=== PATIENT | male | born 1960 | race Caucasian/White ===

== ENCOUNTER 2019-12-21 04:29 | Inpatient (IN) ==
[2019-12-14 15:19] LABS: HEMATOCRIT 50.3 % (42.0-52.0); HEMOGLOBIN 16.5 g/dL (14.0-18.0); MCH 32.2 PG (27-31); MCHC 32.8 g/dL (33-37); MCV 98.1 FL (81-99); MPV 10.9 FL (7.4-10.4); RBC 5.13 XMIL (4.7-6.1); RDW 13.8 % (11.5-14.5); WBC 14.04 X1000 (4.8-10.8)
[2019-12-14 15:51] LABS: AGAP 14; ALB/GLOB RATIO 1.3; ALBUMIN 4.3 g/dL (3.5-5.0); ALKALINE PHOSPHATASE 72 U/L (32-122); BUN 18 mg/dL (8-22); CHLORIDE 97 mmol/L (98-107); COSMO 280; CREATININE 0.8 mg/dL (0.7-1.2); ESTIMATED GFR > 60; GLUCOSE 106 mg/dL (70-104); GOT 12 U/L (10-34); GPT 9 U/L (10-44); POTASSIUM 4.6 mmol/L (3.5-5.1); SODIUM 139 mmol/L (136-145); TCO2 28 mmol/L (25-35); TOTAL BILIRUBIN 0.45 mg/dL (0.20-1.00); TOTAL PROTEIN 7.7 g/dL (6.3-8.3)
[2019-12-21] MEDS ORDERED: LR 1,000 ML ONE ×3 (05:31→13:33)
[2019-12-21] MEDS ORDERED: KEFZOL 1 GM/D5W 2 GM/100 ML IVPB ONE (05:31)
[2019-12-21] MEDS ORDERED: FENTANYL ONE (06:08)
[2019-12-21] MEDS ORDERED: DIPRIVAN 1% ONE ×2 (06:08→07:22)
[2019-12-21] MEDS ORDERED: VERSED ONE ×3 (06:08→06:38)
[2019-12-21] MEDS ORDERED: NITROGLYCERIN ONE (06:25)
[2019-12-21] MEDS ORDERED: SENSORCAINE-MPF 0.5%/EPI 1:200,000 ONE ×2 (06:29→06:44)
[2019-12-21] MEDS ORDERED: NEO-SYNEPHRINE ONE (09:05)
[2019-12-21] MEDS ORDERED: OFIRMEV 1000 MG/ISOTONIC SOLN 1,000 MG/100 ML BOTTLE ONE (09:05)
[2019-12-21] MEDS ORDERED: SODIUM CHLORIDE 0.9% 10 ML ONE ×2 (09:05→12:21)
[2019-12-21] MEDS ORDERED: ROBINUL ONE (09:05)
[2019-12-21] MEDS ORDERED: NEOSTIGMINE ONE (09:05)
[2019-12-21] MEDS ORDERED: QUELICIN (DOSE) ONE (09:05)
[2019-12-21] MEDS ORDERED: ZOFRAN ONE (09:05)
[2019-12-21] MEDS ORDERED: DECADRON ONE (09:05)
[2019-12-21] MEDS ORDERED: XYLOCAINE-MPF 2% ONE (09:05)
[2019-12-21 10:39] LABS: URINE SOURCE CATH
[2019-12-21 10:48] LABS: BILIRUBIN URINE NEGATIVE (NEGATIVE); BLOOD URINE NEGATIVE (NEGATIVE); COLOR YELLOW; GLUCOSE URINE NEGATIVE (NEGATIVE); KETONE URINE NEGATIVE (NEGATIVE); LEUKOCYTES URINE NEGATIVE (NEGATIVE); NITRITE URINE NEGATIVE (NEGATIVE); PH URINE 5.5; PROTEIN URINE NEGATIVE (NEGATIVE); TURBIDITY URINE CLEAR (CLEAR); UR EPITHELIAL CELLS <10 /HPF (<10); URINE BACTERIA NEGATIVE /HPF; URINE RBC <10 /HPF (<10); URINE WBC <10 /HPF (<10); UROBILINOGEN URINE NORMAL (NORMAL)
[2019-12-21] MEDS ORDERED: NIMBEX ONE (11:53)
[2019-12-21] MEDS ORDERED: EPHEDRINE ONE (12:21)
[2019-12-21] MEDS: NITROGLYCERIN TOP SCH ×2 (13:20→18:35)
[2019-12-21] MEDS: DILAUDID ONE ×4 (13:40→14:30)
[2019-12-21] MEDS ORDERED: PHENERGAN ONE (13:40)
--- NOTE | 2019-12-21 13:50 | Diag Imaging Result Doc PS360 ---
EXAM: CHEST-PORTABLE 12/21/2019 HISTORY: PACU 3 TECHNIQUE: AP portable upright at 1323 COMMENT: There is soft tissue emphysema in the supraclavicular region on the right. There is no appreciable pneumothorax. There does appear to be pneumoperitoneum under the right hemidiaphragm. This is presumably related to the recent nephrectomy. IMPRESSION: 1. Soft tissue emphysema in the right supraclavicular region of uncertain etiology. 2. Pneumoperitoneum which is presumably postsurgical. These findings were called to the PACU and readback. Electronically signed by Francisco J Omalley 12/21/2019 1:47 PM
[2019-12-21] MEDS ORDERED: LABETALOL IV PRN (14:30)
[2019-12-21 14:44] LABS: AGAP 10; BUN 22 mg/dL (8-22); CALCIUM 8.2 mg/dL (8.8-10.2); CHLORIDE 102 mmol/L (98-107); COSMO 272; CREATININE 0.9 mg/dL (0.7-1.2); ESTIMATED GFR > 60; GLUCOSE 177 mg/dL (70-104); POTASSIUM 4.9 mmol/L (3.5-5.1); SODIUM 132 mmol/L (136-145); TCO2 20 mmol/L (25-35)
[2019-12-21 14:55] LABS: HEMATOCRIT 40.4 % (42.0-52.0); HEMOGLOBIN 13.5 g/dL (14.0-18.0); MCH 31.9 PG (27-31); MCHC 33.4 g/dL (33-37); MCV 95.5 FL (81-99); MPV 10.5 FL (7.4-10.4); PLT 161 X1000 (130-400); RBC 4.23 XMIL (4.7-6.1); RDW 15.4 % (11.5-14.5); WBC 31.36 X1000 (4.8-10.8)
[2019-12-21 15:08] LABS: LARGE PLATELETS OCCASIONAL; LYMPHS 3 % (21-51); MONO 1 % (1-9); SEGS 96 % (42-75)
[2019-12-21] MEDS: LR 1,000 ML IV SCH ×2 (16:04→21:37)
[2019-12-21] MEDS: MORPHINE IV PRN ×4 (16:10→23:39)
[2019-12-21] MEDS: KEFZOL 1 GM/D5W 1 GM/50 ML IVPB IV SCH ×2 (16:11→23:40)
[2019-12-21] MEDS: NORCO-7.5 PO PRN ×2 (17:49→22:18)
[2019-12-21] MEDS: BLISTEX MEDICATED BERRY LIP BALM TOP PRN ×2 (18:33→23:39)
[2019-12-21 19:48] LABS: BASO# 0.01 X1000 (0.0-0.2); HEMATOCRIT 40.4 % (42.0-52.0); HEMOGLOBIN 13.6 g/dL (14.0-18.0); IMM GRAN# 0.14 X1000 (0.0-0.04); IMM GRAN% 0.5 % (0.0-0.5); LYMPH# 0.64 X1000 (1.2-3.4); LYMPH% 2.1 % (20.5-51.1); MCH 31.3 PG (27-31); MCHC 33.7 g/dL (33-37); MCV 93.1 FL (81-99); MONO# 1.56 X1000 (0.11-0.59); MONO% 5.2 % (1.7-9.3); MPV 10.8 FL (7.4-10.4); NEUT# 27.54 X1000 (1.4-6.5); NEUT% 92.2 % (42.2-75.2); PLT 176 X1000 (130-400); RBC 4.34 XMIL (4.7-6.1); RDW 15.5 % (11.5-14.5); WBC 29.89 X1000 (4.8-10.8)
[2019-12-21] MEDS: COLACE PO SCH (20:23)
[2019-12-21] MEDS: ZOFRAN IV PRN (21:37)
--- NOTE | 2019-12-21 22:20 | OPERATIVE NOTE ---
PROCEDURE DATE: 12/21/2019 PREOPERATIVE DIAGNOSES: 1. Right renal mass. 2. Right adrenal mass. POSTOPERATIVE DIAGNOSES: 1. Right renal mass. 2. Right adrenal mass. PROCEDURE PERFORMED: Robotic assisted right nephrectomy with excision of right adrenal gland. SURGEON: Jerry Mar MD. SENIOR ASSET MANAGER: Lexa Casper MD ANESTHESIA: General endotracheal intubation. BLOOD LOSS: 3000 mL BLOOD PRODUCTS: 1. 4 units of packed red blood cells. 2. 1 unit of FFP. SPECIMENS REMOVED: 1. Right adrenal gland. 2. Right kidney and proximal ureter. COMPLICATIONS: Intraoperative bleeding. INDICATIONS FOR PROCEDURE: Mr. Kolb is a 59-year-old who presented to [facility] with a large right renal mass with adrenal involvement. The patient had imaging when he presented to the emergency room with chest pain back in September. The patient had a heart stent placed in August of 2019 and has been on blood thinners with Plavix and aspirin. 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 I talked with his physical education aide/oncologist who recommended cytoreductive nephrectomy. I discussed with the patient that this would decrease his tumor burden and may assist with overarching treatment with immune modulator and immune therapy medications. I told him that it would be difficult for us to remove every location of cancer, but we could perform cytoreductive nephrectomy with removal of kidney and adrenal gland. I talked with him extensively regarding the risks including bleeding, infection, damage to surrounding structures, need for secondary procedures, as well as need for intraoperative blood transfusion. After thorough discussion, the patient elected to proceed. DESCRIPTION OF PROCEDURE: After informed consent was obtained, the patient was brought to the operating room and placed on the table in supine position. The patient received endotracheal intubation and preoperative antibiotics. The patient had to be intubated with a GlideScope. Due to patient's cervical stenosis, the patient was positioned in a right up lateral decubitus position. All pressure points were padded. The patient was adhered to the bed with Velcro and the silk tape. He was tested at the extremes of rotation and stable. The patient was then prepped and draped in usual sterile fashion. A preoperative time-out was performed with all parties in agreement including anesthesia, surgical and nursing staff, at which point access was obtained to the abdomen itself using a Veress technique supraumbilically, and a drop test was then performed with 2 separate instillations of saline, which allowed for good drainage into the belly itself. We started our pressure on a low pressure and then increased it as necessary to high flow. The abdomen distended relatively appropriately, which was limited by patient's body habitus. Once this was performed, her incisions were then marked out, and using 0.5% Marcaine with epinephrine, we infiltrated the skin, and our camera port was inserted. Once this was inserted, a camera was placed into the abdomen, which showed no obvious trauma to the bowel or blood vessels. No significant adhesions were seen at which point each of our incisions were then marked and infiltrated with local anesthesia, and then each of our robotic instruments and back office medical assistant port were placed under direct visualization as well as a 5 mm for liver retraction. Once this was performed, all of our instruments were inserted, and the robotic platform was docked. Once this was completed, we began by dissecting the white line of Toldt and reflected the colon medially. We could see the tumor. It was posterior to the colon itself. I was able to retract the colon away and Kocherize the duodenum. A small amount of adhesions were seen in the lower pelvis, which were easily removed as well as some adhesions of the peritoneum to the liver itself. Once the colon and the duodenum were retracted appropriately, the patient had dissection over the inferior vena cava. I was able to follow this inferiorly to the lower pole and could see the gonadal vein as well as the ureter. The gonadal vein was retracted downward, and the ureter retracted upward, and this was used to dissect toward the renal hilum. A renal artery was able to be isolated posterior to the renal vein, and this was taken with a 35 mm stapler at which point this allowed for freeing up of the renal vein, which was then taken with the stapler; however, a small amount of bleeding was seen likely from the adrenal gland itself. This became quite brisk, and using cautery as well as Hem-o-sancho clips was able to obtain adequate hemostasis; however, continued to have some bleeding from the metastatic adrenal nodule. Pressure was placed in this as well as cautery, and a small ooze was seen. Decision was made to try to mobilize the kidney away from the adrenal gland and began by taking this from the lower pole and moving to the upper pole; however, it was very difficult to reach the upper pole due to the tumor size, and a moderate amount of bleeding was encountered on the posterior portion of the kidney. Also, I was able to free up the lateral attachments and allow for inferior retraction of the kidney and the mass itself. Attention was then placed trying to free up the adrenal gland away from the kidney itself and this was quite difficult. Ultimately, I had to come across the adrenal gland with a stapler just to obtain enough retraction to adequately remove the adrenal mass and kidney. Once this was freed up, this allowed for mobilization of the kidney itself away from the adrenal, which continued to bleed a small amount. The patient received 4 units of packed red blood cells due to continuous bleeding as well as 1 unit of fresh frozen plasma. Once this was dissected out, we were able to free the kidney up completely. A small amount of bleeding was seen posterior, which was cauterized with our bipolar electrocautery. We did obtain better hemostasis at this point. Once this was obtained, we began by dissecting out the residual adrenal mass and was able to create a plane between the inferior vena cava and ligated the adrenal vein, which allowed freeing up of the adrenal mass, and this was completely removed and placed into a EndoCatch bag. The wound was then irrigated, and insufflation was decreased down to 3 mmHg with no significant bleeding at which point SurgiSnow and Arixtra was then placed into the resection bed itself. We previously had a liver retractor in place, which was attached to the lateral wall, which was removed and allowed the liver to fall back into its normal position. No significant trauma was seen at the site of the liver retractor. Insufflation was then decreased again to 3 with no active bleeding. Laparoscopic Allis clamp was then passed through our back office medical assistant port and grasped the renal hilum. All instruments were then removed. The midline incision was carried on the infraumbilical incision and carrying it through the fascia and ultimately was able to retract our EndoCatch bag and then ultimately the kidney itself, which was sent for specimen. The wound was then vigorously irrigated with small amount of bleeding seen from our incision which was cauterized. We then used a 0 Vicryl to close our camera port and then using a 0 Maxon suture was able to close our extraction site. The wounds were then vigorously irrigated and superficial wound of our extraction site was then closed in a running fashion to close the subcutaneous tissue, and then each incision was closed using a 4-0 Monocryl and then skin glue was adhered. The patient was then awoken and was taken to recovery in stable condition. The patient will be admitted to the ICU for observation and continued resuscitation. Dr. Casper was present for the entirety of the procedure and was a georges member in assisting with the procedure due to the complexity of the case. He was present for all georges portions of this procedure cc: Jerry Mar MD [facility]
--- NOTE | 2019-12-21 22:36 | PULMONOLOGY CONSULTATION ---
DATE: 12/21/2019 REASON FOR CONSULTATION: Subcutaneous emphysema, mild hypoxemic respiratory failure, coronary artery disease, status post nephrectomy with intraoperative bleeding. HISTORY OF PRESENT ILLNESS: Mr. Kolb is a 59-year-old white male with DISH and significant spine disease, coronary artery disease status post stent placement in August 2019, who underwent a nephrectomy for presumptive kidney cancer today. The patient's Plavix had been discontinued several days prior to the procedure. The patient had several unit blood loss and received 4 units of packed red blood cells during the operation. He has been transitioned to the ICU. He is awake, alert, and conversant. He is hemodynamically stable. PREVIOUS SURGERIES: 1. Coronary artery disease. The patient had episode of severe angina last August without myocardial infarction. He indicates he had 3 blockages noted on cardiac catheterization including 80% blockage, a 90% blockage and a 70% blockage. He was referred to cardiac surgery for bypass grafting but the surgeon recommended stent placement given his severe DISH and lack of spinal mobility. He subsequently underwent 2 stents in one of the lesions and 1 stent in the other and the 70% was left for medical management. 2. Diffuse idiopathic skeletal hyperostosis affecting the cervical and thoracic spine. The patient has significant mobility. He cannot touch his chin to his chest. He cannot turn his head [id number]. 3. Dyslipidemia. 4. Hypertension. 5. Visual loss left eye. 6. Status post recent right inner inguinal hernia repair. SOCIAL HISTORY: The patient is an active smoker. No recent alcohol use. He is and his also smokes. She has diabetes. FAMILY HISTORY: Cannot be obtained. The patient was adopted. REVIEW OF SYSTEMS: Notable for appropriate for surgical abdominal pain which increases with cough or deep breathing. Review of systems is otherwise negative. PHYSICAL EXAMINATION: General: Reveals a healthy-appearing male who is resting comfortably and in no distress. The patient has been afebrile for the last 4 hours. BP 123/78, heart rate 75, respiratory rate 21, oxygen saturation 100% on 4 L per nasal cannula. HEENT: Pupils are equal. The left pupil reaction is sluggish. Oropharynx appears clear. Neck: Stiff. He cannot turn his neck [id number] and he has limited front, back mobility. There is some subcutaneous air that can be felt in the right supraclavicular fossa. Chest: Reveals limited air flow bilaterally. He may have some splinting associated with abdominal pain. Abdominal dressings are in place and they are not soiled. Extremities: Without edema. LABORATORIES: Chest x-ray reveals small amount of air under the diaphragm on the right. He has subcutaneous air noted in the right supraclavicular fossa. No definite pneumothorax. White blood count 29,000, hemoglobin 13.6, platelet count 176,000. Sodium 132, potassium 4.9, chloride 102, bicarbonate 20, anion gap is 10 and actually decreased from his preoperative labs. BUN 22, creatinine 0.9, glucose 177. IMPRESSION: A 59-year-old with 1. Subcutaneous emphysema. This is most likely related to tracking through the abdominal wall due to insufflation of the abdomen during the surgical procedure. 2. Mild pneumothorax. This is also likely related to surgical procedure and does not warrant intervention. 3. Coronary artery disease. By description, he may have 3-vessel disease but does have at least 3-lesion disease. 4. Mild hypoxemic respiratory failure. 5. Dyslipidemia. RECOMMENDATIONS: 1. Continue current fluid resuscitation as you are doing. 2. Wean oxygen as tolerated. 3. Initiate incentive spirometry. 4. Reinitiate carvedilol and cholesterol agents tomorrow. 5. Would like to reinitiate an aspirin as soon as possible and reinitiate Plavix as soon as Dr. Mar feels that this is feasible. cc: MD Jerry Puente MD MTDD
[2019-12-21] MEDS ORDERED: LR 1,000 ML IV ONE (23:39)
[2019-12-21] MEDS ORDERED: NEO-SYNEPHRINE 50 MG in NS 250 ML IV SCH (23:45)
[2019-12-21] MEDS ORDERED: SOLU-CORTEF IV ONE (23:46)
[2019-12-22] MEDS: MORPHINE IV PRN ×5 (02:10→19:40)
[2019-12-22] MEDS: NITROGLYCERIN TOP SCH ×4 (02:40→19:41)
[2019-12-22] MEDS: KEFZOL 1 GM/D5W 1 GM/50 ML IVPB IV SCH (06:20)
[2019-12-22] MEDS: LR 1,000 ML IV SCH ×3 (06:26→16:31)
[2019-12-22 06:49] LABS: BASO# 0.01 X1000 (0.0-0.2); BASO% 0.1 % (0.0-0.8); HEMATOCRIT 35.7 % (42.0-52.0); HEMOGLOBIN 11.6 g/dL (14.0-18.0); IMM GRAN# 0.05 X1000 (0.0-0.04); IMM GRAN% 0.3 % (0.0-0.5); LYMPH% 4.1 % (20.5-51.1); MCH 30.8 PG (27-31); MCHC 32.5 g/dL (33-37); MCV 94.7 FL (81-99); MONO% 9.2 % (1.7-9.3); MPV 10.6 FL (7.4-10.4); NEUT# 16.82 X1000 (1.4-6.5); NEUT% 86.3 % (42.2-75.2); PLT 154 X1000 (130-400); RBC 3.77 XMIL (4.7-6.1); RDW 15.5 % (11.5-14.5); WBC 19.48 X1000 (4.8-10.8)
[2019-12-22 07:10] LABS: AGAP 7; ALB/GLOB RATIO 1.3; ALBUMIN 3.1 g/dL (3.5-5.0); ALKALINE PHOSPHATASE 49 U/L (32-122); BUN 22 mg/dL (8-22); CALCIUM 8.9 mg/dL (8.8-10.2); CHLORIDE 100 mmol/L (98-107); COSMO 271; CREATININE 1.2 mg/dL (0.7-1.2); ESTIMATED GFR > 60; GLUCOSE 123 mg/dL (70-104); GOT 50 U/L (10-34); GPT 37 U/L (10-44); PHOSPHORUS 3.8 mg/dL (2.7-4.5); POTASSIUM 5.1 mmol/L (3.5-5.1); SODIUM 133 mmol/L (136-145); TCO2 26 mmol/L (25-35); TOTAL BILIRUBIN 0.62 mg/dL (0.20-1.00); TOTAL PROTEIN 5.5 g/dL (6.3-8.3)
[2019-12-22 07:22] LABS: LYMPHS 4 % (21-51); MONO 7 % (1-9); SEGS 89 % (42-75)
--- NOTE | 2019-12-22 07:23 | EKG Report ---
Test Performed on : 12/22/2019 06:51:27 AM Test Reason : f/u Blood Pressure : / mmHG Vent. Rate : 061 BPM Atrial Rate : 061 BPM P-R Int : 150 ms QRS Dur : 100 ms QT Int : 408 ms P-R-T Axes : 029 -39 024 degrees QTc Int : 410 ms Normal sinus rhythm. Left axis deviation Incomplete right bundle branch block Abnormal ECG No previous ECGs available Confirmed by Joselyn Sanchez MD ([id number]) on 12/23/2019 12:14:50 PM
--- NOTE | 2019-12-22 07:33 | Diag Imaging Result Doc PS360 ---
EXAM: CHEST-PORTABLE INDICATION: abnormal exam TECHNIQUE: One view COMPARISON: 12/21/2019 FINDINGS: The soft tissue emphysema in the right supraclavicular region has decreased. No new airspace consolidations are identified. Cardiac silhouette is stable. There is stable free air underneath the right hemidiaphragm, assumed to be postsurgical. IMPRESSION: Decrease in soft tissue emphysema in the right supraclavicular region. Stable chest, otherwise. Electronically signed by Jeremi Terry 12/22/2019 7:31 AM
--- NOTE | 2019-12-22 07:47 | PROGRESS NOTE ---
DATE: 12/22/2019 SUBJECTIVE: Postoperative day 1 from right robotic-assisted laparoscopic right radical nephrectomy with excision of a metastatic lesion to the adrenal gland. The patient had significant blood loss yesterday with 3000 mL of EBL, received 4 units of packed red blood cells. He was transferred to the ICU postoperatively and overall is doing well. He had some hypotension overnight and he was started on phenylephrine, is on the lowest dose with MAPs in the 80s to 90s. He states his pain is well controlled. He has had minimal pain medication overnight. He previously was having some shoulder pain which is now resolved. He denies any fevers or chills. The patient would like something more substantial for breakfast this morning. He is having flatus. He has been tolerating clear liquid sips without issue. OBJECTIVE: Vital signs: Temperature 98.9 degrees, heart rate 62, blood pressure 109/62, MAP of 68, oxygen saturation 98% on room air. General: No acute distress, resting comfortably in bed. Alert and oriented x3. Respiratory: Good respiratory effort without audible wheezing or rales. Abdomen: Soft, nontender, nondistended. Genitourinary: No suprapubic tenderness. No CVA tenderness. Urethral catheter in place draining clear yellow urine. Skin: All skin incisions are well healed with no significant drainage. The patient has a right groin incision from prior hernia repair with Dermabond present and healing. Musculoskeletal: Moving all extremities. The patient does have significant cervical stenosis and contracture. LABORATORY DATA: White blood cell count 19.5 from 29.9 last night, hemoglobin 11.6, hematocrit 35.7, platelets 154,000. BMP shows sodium 133, potassium 5.1, chloride 100, bicarbonate 26, BUN 22, creatinine 1.2, glucose 123, and lactic acid 1.5 IMAGING: Chest x-ray from 12/22/2019 showed stable appearance of pneumoperitoneum with may be slightly improved. Improving subcutaneous emphysema. The patient's chest appears to be normal with no obvious pneumothorax. Lung markings go to the periphery of the thorax. ASSESSMENT AND PLAN: Mr. Kolb is postop day 1 from difficult robotic- assisted laparoscopic radical nephrectomy. The patient has a history of coronary artery disease, skeletal hyperostosis with cervical and thoracic spine involvement, dyslipidemia, hypertension, who was admitted to the ICU postoperatively. Overall, the patient has done well overnight. Did have some hypotension and was started on phenylephrine. This seems to have improved his blood pressures this morning. The patient's vitals are within normal limits currently. His white blood cell count continues to trend down. Hemoglobin and hematocrit, hematocrit was 35 this morning from 40 yesterday. This is likely somewhat dilutional. Abdominal exam is benign with no significant tenderness to palpation. Abdomen is nontender and no distention present. Would continue to monitor in the ICU. We will try to wean pressors as necessary. We will continue to slowly advance his diet as tolerated. He states he is passing flatus and is having good urinary output. Would leave indwelling catheter in at this time. The patient has significant cardiac disease and is being followed currently by Pulmonary. It is recommended that he start back with Plavix as soon as possible. Continue to still be concerned about loading dose of Plavix for him. We will start him on heparin to see if this will decrease his risk of pulmonary emboli and DVT. Encouraged him to be ambulatory as tolerated today. We will advance his diet as tolerates. Continue to monitor. We will plan to take his recovery slow just due to the difficulty of the surgery and underlying health comorbidities. Would plan for ICU care again today. Continue home medications. We will monitor blood pressure. The patient takes blood pressure medications at home. We will hold them now due to marginal blood pressures and requiring vasopressor. Continue urinary catheter for strict I&O. cc: Jerry Mar MD [facility]
[2019-12-22] MEDS: ZOFRAN IV PRN ×3 (07:55→22:12)
[2019-12-22] MEDS: HEPARIN SUBQ SCH ×2 (07:55→19:40)
[2019-12-22] MEDS: COLACE PO SCH ×2 (08:01→20:04)
[2019-12-22] MEDS: ROBAXIN PO SCH ×3 (08:01→16:52)
[2019-12-22] MEDS: COREG PO SCH (08:01)
[2019-12-22] MEDS: SOLU-CORTEF IV SCH (12:05)
[2019-12-22] MEDS: NORCO-7.5 PO PRN ×3 (12:35→23:28)
[2019-12-22 15:01] LABS: HEMOGLOBIN 11.4 g/dL (14.0-18.0); MCH 30.9 PG (27-31); MCHC 32.6 g/dL (33-37); MCV 94.9 FL (81-99); MPV 10.4 FL (7.4-10.4); RBC 3.69 XMIL (4.7-6.1); RDW 15.3 % (11.5-14.5); WBC 15.73 X1000 (4.8-10.8)
--- NOTE | 2019-12-22 19:21 | Diag Imaging Result Doc PS360 ---
EXAM: CHEST-PORTABLE HISTORY: dyspnea TECHNIQUE: Single view COMPARISON: 5:29 AM FINDINGS: No interval change in the appearance of the lungs. No change in the subcutaneous air in the right neck or in the free air beneath the diaphragm. IMPRESSION: No change. Electronically signed by Tk Hudson 12/22/2019 7:18 PM
[2019-12-22] MEDS: D5 1/2 NS + KCL 20 MEQ 1,000 ML IV SCH (19:41)
[2019-12-22] MEDS: LIPITOR PO SCH (20:04)
[2019-12-22] MEDS ORDERED: LASIX IV ONE (21:33)
--- NOTE | 2019-12-22 22:30 | PULMONOLOGY PROGRESS NOTE ---
DATE: 12/22/2019 SUBJECTIVE: The patient reports he did not sleep last night. The patient next door was yelling out most of the night. He denies shortness of breath. He reports his pain is fairly well controlled. He was on Misha-Synephrine transiently through the night. His blood pressure has continued to climb through the day. OBJECTIVE: Vital Signs: The patient has been afebrile for the last 24 hours. Blood pressure 152/83, heart rate 68, respiratory rate 27, oxygen saturation 96% on room air. HEENT: Pupils are equal and reactive. Oropharynx appears clear. Neck: Supple. Abdomen: Soft with no significant surgical drainage. Extremities: Reveal trace to 1+ peripheral edema. LABORATORIES: Chest x-ray: no change 1.Pneumoperitoneum/postsurgical air under the diaphragm which is stable. 2. Probable adrenal insufficiency. His blood pressure was marginal after a major surgery, and his cortisol level was lower than expected at 6.1. A number greater than 20 would be expected due to his hemodynamic stress. 3. Mild hypotension, which has resolved. RECOMMENDATIONS: 1. Agree with decreasing IV fluids as ordered by Dr. Mar. 2. Continue low-dose heparin. Initiate Plavix when feels that this is safe. 3. We will decrease steroids tomorrow if his blood pressure remains elevated. He remains on low- dose hydrocortisone. 4. Discontinue arterial catheter tomorrow if he remains hemodynamically stable. 5. Anticipate transfer out to the floor tomorrow if he continues to do well. cc: MD Jerry Puente MD [facility]
[2019-12-23] MEDS: SOLU-CORTEF IV SCH ×2 (00:53→12:26)
[2019-12-23] MEDS: NITROGLYCERIN TOP SCH ×4 (00:53→19:35)
[2019-12-23 06:45] LABS: HEMATOCRIT 35.2 % (42.0-52.0); HEMOGLOBIN 11.7 g/dL (14.0-18.0); MCH 31.4 PG (27-31); MCHC 33.2 g/dL (33-37); MCV 94.4 FL (81-99); MPV 11.2 FL (7.4-10.4); RBC 3.73 XMIL (4.7-6.1); RDW 14.7 % (11.5-14.5); WBC 16.65 X1000 (4.8-10.8)
[2019-12-23 07:23] LABS: AGAP 10; ALB/GLOB RATIO 1.2; ALBUMIN 3.3 g/dL (3.5-5.0); ALKALINE PHOSPHATASE 58 U/L (32-122); BUN 16 mg/dL (8-22); CALCIUM 9.5 mg/dL (8.8-10.2); CHLORIDE 96 mmol/L (98-107); COSMO 277; CREATININE 1.1 mg/dL (0.7-1.2); ESTIMATED GFR > 60; GLUCOSE 161 mg/dL (70-104); GOT 40 U/L (10-34); GPT 31 U/L (10-44); POTASSIUM 4.2 mmol/L (3.5-5.1); SODIUM 136 mmol/L (136-145); TCO2 30 mmol/L (25-35)
[2019-12-23] MEDS ORDERED: PLAVIX PO ONE (07:28)
--- NOTE | 2019-12-23 07:29 | Diag Imaging Result Doc PS360 ---
EXAM: CHEST-PORTABLE HISTORY: abnormal exam TECHNIQUE: Single view COMPARISON: 03/07/2020 FINDINGS: The lungs are well expanded. Minimal increased markings in the lung bases. No cardiomegaly. No pleural effusions identified. There is subcutaneous air in the right neck and free air beneath the right hemidiaphragm. No pneumothorax identified. IMPRESSION: Slight interval improvement. Electronically signed by Tk Hudson 12/23/2019 7:26 AM
[2019-12-23 07:46] LABS: MAGNESIUM 1.5 mg/dL (1.5-2.7); PHOSPHORUS 2.4 mg/dL (2.7-4.5)
--- NOTE | 2019-12-23 07:59 | PROGRESS NOTE ---
DATE: 12/23/2019 SUBJECTIVE: Postoperative day 2 from right robotic-assisted laparoscopic radical nephrectomy with resection of adrenal metastatic lesion. The patient did relatively well overnight. He was having some increased work of breathing and shortness of breath yesterday, which improved overnight. He states he passed a large amount of gas this morning and feels much better. He denies any abdominal distention. He denies any diaphragmatic or upper abdominal pain. He has made good urinary output with 7 liters recorded yesterday. Denies any shortness of breath, fevers or chills. Blood pressures have been stable without tachycardia. OBJECTIVE: Vital Signs: Temperature 98.5 degrees, heart rate 77, blood pressure 124/65, oxygen saturation 96% on room air. General: No acute distress. Resting comfortably in bed. Alert and oriented x3. Respiratory: Good respiratory effort without audible wheezing or rales. Abdomen: Soft, nontender, nondistended. : No suprapubic tenderness. No CVA tenderness. Urethral catheter in place draining clear yellow urine. Musculoskeletal: Moving all extremities. Skin: No obvious skin lesions or rashes. Incisions are well healed with Dermabond present. LABS: White blood cell count 16.7, hemoglobin 11.6, hematocrit 35.2, platelets 125. Sodium 136, potassium 4.2, chloride 96, bicarbonate 30. BUN 16, creatinine 1.1, glucose 161. ASSESSMENT AND PLAN: Mr. Kolb is a 59-year-old who is postoperative day 2 from robotic- assisted laparoscopic right radical nephrectomy, which was difficult due to bleeding, as well as metastatic tumor lesion making it difficult to remove the kidney and metastatic adrenal lesion. The patient was monitored in the intensive care unit and overall is doing well. He denies significant pain this morning and patient was able to pass a large amount of gas and has been doing well. Heart rate and blood pressure within normal limits. White blood cell count is 16.7 today, hemoglobin and hematocrit are stable; has been stable on 3 separate hematocrits. We will plan to start his Plavix back today. Continue on heparin for anticoagulation for deep vein thrombosis prophylaxis. We will plan for him to be ambulatory today. We will remove his catheter and transition him to PVC as long as he does well this morning. Continue home medications, monitoring blood pressure and heart rate. Continue oral pain medications as necessary. Renal function is stable at 1.1, he is making good urinary output with 7 liters recorded yesterday. We will continue to monitor in the hospital. The patient will need continued inpatient care as he recovers postoperatively. cc: Jerry Mar MD MTDD
[2019-12-23] MEDS ORDERED: MAGNESIUM SULFATE 2 GM/S.W.I. 2 GM/50 ML IVPB IV ONE (08:09)
[2019-12-23] MEDS: COLACE PO SCH ×2 (08:29→20:21)
[2019-12-23] MEDS: ROBAXIN PO SCH ×3 (08:32→16:53)
[2019-12-23] MEDS: COREG PO SCH (08:33)
[2019-12-23] MEDS: HEPARIN SUBQ SCH ×2 (08:34→20:21)
[2019-12-23] MEDS: D5 1/2 NS + KCL 20 MEQ 1,000 ML IV SCH ×2 (08:45→22:23)
[2019-12-23] MEDS: MORPHINE IV PRN ×4 (10:12→22:22)
[2019-12-23] MEDS: LIPITOR PO SCH (20:21)
--- NOTE | 2019-12-23 21:36 | PULMONOLOGY PROGRESS NOTE ---
DATE: 12/23/2019 SUBJECTIVE: The patient is awake, alert and conversant. He reports he feels better today. OBJECTIVE: BP 144/66, heart rate 74, respiratory rate 16. Intake 3000 mL, output 7920 mL. HEENT: Pupils are equal and reactive. Oropharynx appears clear. Neck is supple. Chest reveals good air entry bilaterally. Cardiac exam: S1, S2. Abdomen is soft. Surgical dressing is in place. Extremities without edema. LABORATORY DATA: Sodium 136, potassium 4.2, chloride 96, bicarbonate 30, BUN 16, creatinine 1.1. White blood count 16.6, hemoglobin 11.7, platelet count 125,000. DIAGNOSTIC DATA: Chest x-ray reveals mild decrease in subcutaneous air and air below the diaphragm. IMPRESSION: 1. A 59-year-old with adrenal insufficiency. 2. Subcutaneous emphysema. 3. Pneumoperitoneum, postoperative residual. 4. Mild hypotension, which has resolved. PLAN: 1. Advance diet per Dr. Mar. 2. Anticipate transfer to the floor. 3. We will discontinue steroids to promote healing. If he has additional hypotension, he may need a longer course of stress-dose steroids. cc: MD Jerry Puente MD
[2019-12-24] MEDS: NITROGLYCERIN TOP SCH ×4 (00:48→20:14)
[2019-12-24] MEDS: NORCO-7.5 PO PRN ×2 (00:56→14:14)
[2019-12-24] MEDS: MORPHINE IV PRN ×5 (02:19→20:15)
[2019-12-24 06:11] LABS: HEMATOCRIT 32.5 % (42.0-52.0); HEMOGLOBIN 10.7 g/dL (14.0-18.0); MCH 31.7 PG (27-31); MCHC 32.9 g/dL (33-37); MCV 96.2 FL (81-99); MPV 10.8 FL (7.4-10.4); RBC 3.38 XMIL (4.7-6.1); RDW 14.3 % (11.5-14.5); WBC 11.21 X1000 (4.8-10.8)
[2019-12-24 06:33] LABS: AGAP 6; BUN 14 mg/dL (8-22); CALCIUM 9.1 mg/dL (8.8-10.2); CHLORIDE 99 mmol/L (98-107); COSMO 276; ESTIMATED GFR > 60; GLUCOSE 131 mg/dL (70-104); MAGNESIUM 1.8 mg/dL (1.5-2.7); POTASSIUM 4.4 mmol/L (3.5-5.1); SODIUM 137 mmol/L (136-145); TCO2 32 mmol/L (25-35)
[2019-12-24] MEDS: PLAVIX PO SCH (08:10)
[2019-12-24] MEDS: ROBAXIN PO SCH ×3 (08:10→17:13)
[2019-12-24] MEDS: COREG PO SCH (08:10)
[2019-12-24] MEDS: COLACE PO SCH ×2 (08:11→20:14)
[2019-12-24] MEDS: HEPARIN SUBQ SCH ×2 (08:11→20:14)
--- NOTE | 2019-12-24 09:03 | PROGRESS NOTE ---
DATE: 12/24/2019 SUBJECTIVE: Postoperative day 3 from robotic assisted laparoscopic right radical nephrectomy with excision of adrenal nodule . The patient was transitioned to PVC yesterday and overall has been doing well. His pain seems to be well controlled. His catheter was removed yesterday and he has been able to void spontaneously. He denies any fevers or chills. He has been able to be ambulatory yesterday with physical therapy. He continues to pass gas, but denies having a bowel movement. The patient states he sat on the bedside commode for 10-20 minutes last night. No bowel movements. Overall, he feels like he is doing well and denies any new complaints this morning. OBJECTIVE: Vital signs: Temperature 97.4 degrees, heart rate 46, blood pressure 133/64, oxygen saturation 96% on room. General: No acute distress. Resting in bed. Alert and oriented x3. Respiratory: Good respiratory effort without audible wheezing or rales. Abdomen: Soft, nontender, nondistended. No palpable masses. Skin: No obvious skin lesions or rashes. The patient had evidence of skin incisions that are well healed with Dermabond present overlying the skin. No drainage from the incisions themselves. The patient has a right groin incision from prior hernia repair with Dermabond present. Musculoskeletal: Moving all extremities. Evidence of neck contracture. LABS: White blood cell count 11.2, hemoglobin 10.7, hematocrit 32.5. Sodium 137, potassium 4.4, chloride 99, bicarbonate 23. BUN 14, creatinine 1.0, glucose 131. PLAN: Mr. Kolb is a 59-year-old who is postoperative day 3 from robotic assisted laparoscopic right radical nephrectomy. Overall, patient has been doing well. He was transitioned to step- down unit yesterday, and overall has been doing well. He remains afebrile with stable vital signs. He has been able to be ambulatory, and denies any pain this morning. Encouraged him to be ambulatory today with physical therapy and up to a chair. We will continue to monitor an inpatient status. I will repeat his CBC in the morning. If he does well, could consider discharging him in the coming days. We will continue with bowel regiment. Remains on Plavix and heparin for anticoagulation. PO medications for pain control. cc: MD JG Askew
[2019-12-24] MEDS: D5 1/2 NS + KCL 20 MEQ 1,000 ML IV SCH (11:41)
[2019-12-24] MEDS: LIPITOR PO SCH (20:14)
[2019-12-24] MEDS: SENOKOT PO SCH (20:14)
--- NOTE | 2019-12-24 23:48 | PULMONOLOGY PROGRESS NOTE ---
DATE: 12/24/2019 SUBJECTIVE: The patient is awake, alert, and conversant. He has been ambulating in the hallway. He reports his appetite is improving. He reports his abdominal pain is less severe today. OBJECTIVE: Vital Signs: The patient is on room air. Blood pressure 118/66, heart rate 62, respiratory rate 17. HEENT: Pupils are equal and reactive. Oropharynx appears clear. Neck: Supple. Chest: Clear to auscultation and percussion. Cardiac: S1-S2. Abdomen: Soft. Extremities: Without edema. IMPRESSION: A 59-year-old with: 1. Resolving subcutaneous emphysema. 2. Pneumoperitoneum. 3. Mild respiratory failure which has resolved. 4. Borderline adrenal insufficiency. DISCUSSION: A 59-year-old with problems outlined above. He continues to improve. He is approaching discharge. PLAN: No additional pulmonary recommendations. We will sign off. Please call with questions. cc: MD Jerry Puente MD
[2019-12-25] MEDS: D5 1/2 NS + KCL 20 MEQ 1,000 ML IV SCH (00:50)
[2019-12-25] MEDS: MORPHINE IV PRN (00:50)
[2019-12-25] MEDS: NITROGLYCERIN TOP SCH ×2 (03:08→08:03)
[2019-12-25] MEDS ORDERED: MIRALAX PO ONE (07:04)
[2019-12-25] MEDS: ROBAXIN PO SCH (07:59)
[2019-12-25] MEDS: PLAVIX PO SCH (08:00)
[2019-12-25] MEDS: SENOKOT PO SCH (08:00)
[2019-12-25] MEDS: NORCO-7.5 PO PRN (08:01)
[2019-12-25] MEDS: COLACE PO SCH (08:02)
[2019-12-25] MEDS: COREG PO SCH (08:03)
[2019-12-25] MEDS: HEPARIN SUBQ SCH (08:04)
[2019-12-25] MEDS ORDERED: DULCOLAX PR SCH (09:00)
[2019-12-25 11:57] VITALS: BP 113/60
--- NOTE | 2019-12-25 23:52 | DISCHARGE SUMMARY ---
ADMISSION DATE: 12/21/2019 DISCHARGE DATE: 12/25/2019 PREOPERATIVE DIAGNOSIS: Right renal mass with adrenal involvement. POSTOPERATIVE DIAGNOSIS: Right renal mass with adrenal involvement. PROCEDURE PERFORMED: Robotic-assisted laparoscopic radical nephrectomy with removal of adrenal mass. HISTORY OF PRESENT ILLNESS: Mr. Kolb is a 59-year-old with history of coronary artery disease status post stent placement in August 2019, who had a CT scan performed of his chest, which showed a right adrenal and renal mass. The patient was seen by Hematology Oncology for possible immunotherapy. In talking with his hematology oncologist, they desired a cytoreductive nephrectomy. The risks, benefits, and alternatives were discussed with the patient including bleeding, infection, damage to surrounding structures, need for secondary procedures, and inability to completely remove the mass. After a thorough discussion, he elected to proceed. He was cleared by his banquet steward go come off of his Plavix in preparation for surgery. HOSPITAL COURSE: The patient presented to the operating room on 12/21/2019. The patient was taken to the operating room and underwent a difficult robotic-assisted right radical nephrectomy with estimated blood loss around 3000 mL due to the complicated anatomy, as well as the significant adrenal mass. The patient received 4 units of packed red blood cells and 1 unit of FFP. He was admitted to the ICU overnight and did relatively well. His pain was well-controlled. His diet was slowly advanced. He did have an episode of hypotension on POD1, which resolved after approximately 8 hours of pressor support. The patient had stable hemoglobin and hematocrit postoperatively and was able to be ambulatory. The patient was transitioned out of the ICU on postoperative day 2 and was followed in the Step-Down Unit. His Plavix was initiated. He did well, was able to work with physical therapy, was able to tolerate p.o. intake with good passage of flatus. He was able to urinate after his catheter was removed. Denied significant pain. Abdominal exam remained benign with well-healing incisions. The patient progressed and, by postop day 4, had reached goals of discharge with good pain control, having a bowel movement, and stable vital signs and was discharged home in stable condition. DISCHARGE MEDICATIONS: The patient was encouraged to continue home medications. He was given prescriptions for [place] 7.5/325 mg, take 1 tablet q.6 hours as needed, Colace 100 mg b.i.d., and senna 8.6 mg b.i.d. for a bowel regimen. POSTOPERATIVE INSTRUCTIONS: The patient was encouraged to be ambulatory in the postoperative setting. He is encouraged to limit his weight lifting to less than 10 pounds for 1 month. Encouraged him to tolerate p.o. intake as necessary. Encouraged him to shower and not perform bathing or submerging of his incisions. DISCHARGE FOLLOWUP: The patient will follow up in Urology office in 10 days for pathology discussion and re-evaluation of wound. The patient was given the phone number for the Urology office. Encouraged to call if develops fevers, chills, worsening pain, dizziness, or inability to tolerate p.o. intake. cc: Jerry Mar MD MTDD
== END 2019-12-25 12:38 | disposition home or self-care (01) | DRG 656 ==
LOC: SURHOLD 04:29 → ICU 14:17 → 2N 12-23 13:24
PROVIDERS: ADMIT Urology; ATTEND Urology